=== PATIENT | female | born 1955 | race African-American/Black ===

== ENCOUNTER 2025-04-07 11:58 | Outpatient (CLI) | payer MEDICARE | END 2025-04-07 11:59 | disposition home or self-care (01) | LOC: CSHWCC 11:58 | PROVIDERS: ATTEND Nurse Practitioner Family | DX: I87.311 Chronic venous hypertension (idiopathic) with ulcer of right lower extremity (principal); E08.622 Diabetes mellitus due to underlying condition with other skin ulcer | CPT/HCPCS: 99212; G0463 ==